=== PATIENT | female | born 1955 | race Caucasian/White ===

== ENCOUNTER 2020-04-08 05:57 | Day surgery (SDC) | payer MEDICARE ==
[~2020-04-08] VITALS: Ht 154.9 cm; Wt 83.4 kg
[2020-04-08] VITALS (13 sets, daily range): BP systolic 108–153; BP diastolic 53–76
[2020-04-08] MEDS ORDERED: normal saline 1,000 ML IV SCH ×2 (06:30→09:30)
[2020-04-08] MEDS ORDERED: nitroGLYCERIN 0.4mg SUBLingual tab SL PRN ×2 (06:30→09:30)
[2020-04-08] MEDS ORDERED: diphenhydrAMINE 25mg capsule PO PRN (06:30)
[2020-04-08] MEDS ORDERED: LORazepam 0.5 MG tablet PO PRN (06:30)
[2020-04-08] MEDS ORDERED: AMLO10TA13 PO (06:36)
[2020-04-08] MEDS ORDERED: METO-411 PO (06:36)
[2020-04-08] MEDS ORDERED: NITR0.4T48 SL (06:36)
[2020-04-08] MEDS ORDERED: HYDR12.55 PO (06:36)
[2020-04-08] MEDS ORDERED: MEGA RED JOINT CARE PO (06:36)
[2020-04-08] MEDS ORDERED: LEVO200T8 PO (06:36)
[2020-04-08] MEDS ORDERED: LISI-600 PO (06:36)
[2020-04-08] MEDS ORDERED: CALC-965 PO (06:36)
[2020-04-08] MEDS ORDERED: MELO-102 PO (06:36)
[2020-04-08] MEDS ORDERED: FISH1CAP15 PO (06:36)
[2020-04-08] MEDS ORDERED: UBID100C16 PO (06:37)
[2020-04-08] MEDS ORDERED: JOINT CARE (06:37)
[2020-04-08] MEDS ORDERED: [UNRECOGNIZED DRUG - OTHER] (06:37)
[2020-04-08] MEDS ORDERED: [UNRECOGNIZED DRUG - OTHER] (06:37)
[2020-04-08] MEDS ORDERED: fentaNYL/PF 50MCG/1 ML 2ML syringe ONE (08:00)
[2020-04-08] MEDS ORDERED: midazolam 2 mg/2 ml injection ONE (08:00)
[2020-04-08] MEDS ORDERED: iohexol 350 MG/ML 50ML vial IV ONE (08:01)
[2020-04-08] MEDS ORDERED: LIDOcaine 1% (10mg/ml)w/preservative injection 20ml MDV ONE (08:01)
[2020-04-08] MEDS ORDERED: iohexol 350MG/ML 100ml bottle IV ONE (08:01)
[2020-04-08] MEDS ORDERED: HYDROcodone/acetaminophen 5mg/325mg tablet PO PRN (09:30)
[2020-04-08] MEDS ORDERED: proCHLORperazine 10 MG/2 ml inj IV PRN (09:30)
[2020-04-08] MEDS ORDERED: ondansetron/PF 4mg/2ml inj IV PRN (09:30)
[2020-04-08] MEDS ORDERED: HYDROcodone/acetaminophen 10/325mg tab PO PRN (09:30)
[2020-04-08] MEDS ORDERED: OXAZEpam 15mg capsule PO PRN (09:30)
== END 2020-04-08 16:28 | disposition home or self-care (01) ==
LOC: SSTAY O 05:57
PROVIDERS: ATTEND Internal Medicine Cardiovascular Disease
DX: R94.39 Abnormal result of other cardiovascular function study (principal); I25.119 Atherosclerotic heart disease of native coronary artery with unspecified angina pectoris; I10 Essential (primary) hypertension; E78.5 Hyperlipidemia, unspecified; J44.9 Chronic obstructive pulmonary disease, unspecified; M19.90 Unspecified osteoarthritis, unspecified site; E11.9 Type 2 diabetes mellitus without complications; F41.9 Anxiety disorder, unspecified; I34.8 Other nonrheumatic mitral valve disorders; E66.9 Obesity, unspecified; Z68.34 Body mass index [BMI] 34.0-34.9, adult; Z87.891 Personal history of nicotine dependence; Z88.2 Allergy status to sulfonamides; Z85.3 Personal history of malignant neoplasm of breast; Z79.899 Other long term (current) drug therapy
CPT/HCPCS: 93005; 93458; 99152; C1760; C1769; J1644; J2001; J2250; J3010; J7030; Q0163; Q9967; 99153; A4620; A6258